=== PATIENT | male | born 1995 | race Caucasian/White ===

== ENCOUNTER 2017-12-08 06:24 | Observation (INO) | payer BC ==
[~2017-12-08] VITALS: Ht 188 cm; Wt 84.2 kg
[2017-12-08 06:32] VITALS: BP 118/71
[2017-12-08] MEDS ORDERED: SODIUM CHLORIDE FLUSH 10ML SYR IVF ONE (07:00)
[2017-12-08] MEDS ORDERED: ONDANSETRON 2MG/ML, 2ML IVPush ONE ×2 (07:00→08:00)
[2017-12-08] MEDS ORDERED: ONDANSETRON 2MG/ML, 2ML ONE ×3 (07:02→11:09)
[2017-12-08] MEDS ORDERED: MORPHINE SULFATE 4 MG/ML, 1ML ONE ×2 (07:03→07:36)
[2017-12-08 07:07] LABS: BASOPHILS # (AUTO) 0.03 x10^3/uL (0-0.1); BASOPHILS % (AUTO) 0 % (0-1); EOSINOPHILS # (AUTO) 0.08 x10^3/uL (0-0.4); EOSINOPHILS % (AUTO) 1 % (1-7); LYMPHOCYTES # (AUTO) 1.72 x10^3/uL (1-3.4); LYMPHOCYTES % (AUTO) 12 % (22-44); MD NO; MEAN CORPUSCULAR HGB CONC 33.9 g/dL (33.2-36.2); MEAN CORPUSCULAR VOLUME 91.4 fL (81-97); MEAN PLATELET VOLUME 9.2 fL (7.4-10.4); MONOCYTES # (AUTO) 0.56 x10^3/uL (0.2-0.8); MONOCYTES % (AUTO) 4 % (2-9); NEUTROPHILS # (AUTO) 12.35 x10^3/uL (1.8-6.8); NEUTROPHILS % (AUTO) 84 % (42-75); PLATELET COUNT 171 x10^3/uL (130-400); RED BLOOD COUNT 5.24 x10^6/uL (4.38-5.82); RED CELL DISTRIBUTION WIDTH 12.3 % (9.4-14.8)
[2017-12-08] MEDS ORDERED: OMEG100023 PO (07:08)
[2017-12-08] MEDS ORDERED: FLUO20CA19 PO (07:08)
[2017-12-08] MEDS: MORPHINE SULFATE 4 MG/ML, 1ML IVPush PRN ×2 (07:10→07:45)
[2017-12-08 07:20] LABS: ALANINE AMINOTRANSFERASE 39 U/L (12-78); ALBUMIN 4.2 g/dL (3.4-5.0); ANION GAP 10 mmol/L (5-15); CALCIUM 8.8 mg/dL (8.5-10.1); CHLORIDE 106 mmol/L (98-107); CREATININE 1.18 mg/dL (0.7-1.3)
[2017-12-08] MEDS ORDERED: SODIUM CHLORIDE 0.9% 1,000 ML IV ONE (07:20)
[2017-12-08 07:21] LABS: ALKALINE PHOSPHATASE 52 U/L (45-117); BILIRUBIN,TOTAL 0.9 mg/dL (0.2-1.0); TOTAL PROTEIN 7.5 g/dL (6.4-8.2)
[2017-12-08 07:36] LABS: MICROSCOPIC NOT IND
[2017-12-08 07:53] LABS: CULTURE INDICATED? NO
[2017-12-08] MEDS ORDERED: CEFOTETAN PMX 1GM/50ML 50 ML ONE (07:56)
[2017-12-08] MEDS ORDERED: CEFOTETAN PMX 1GM/50ML 50 ML IV ONE (08:00)
[2017-12-08] MEDS ORDERED: METOCLOPRAMIDE 5 MG/ML, 2ML ONE (09:54)
[2017-12-08] MEDS ORDERED: METOCLOPRAMIDE 5 MG/ML, 2ML IVPush ONE (10:00)
[2017-12-08] MEDS ORDERED: BUPIVACAINE/PF-EPI 0.25% 1:200K ONE (10:59)
[2017-12-08] MEDS ORDERED: BUPIVACAINE/PF-EPI 0.5% 1:200K ONE (10:59)
[2017-12-08] MEDS ORDERED: SUCCINYLCHOLINE 20 MG/ML, 10ML ONE (11:09)
[2017-12-08] MEDS ORDERED: DEXAMETHASONE 4 MG/ML, 5ML ONE (11:09)
[2017-12-08] MEDS ORDERED: KETOROLAC 30 MG/1 ML ONE (11:09)
[2017-12-08] MEDS ORDERED: PROPOFOL 10 MG/ML, 20ML ONE (11:09)
[2017-12-08] MEDS ORDERED: FENTANYL PF 250 MCG/5ML ONE (11:10)
[2017-12-08] MEDS ORDERED: OXYcodone 5 MG/5 ML ORAL.SOL UDC PO PRN (11:30)
[2017-12-08] MEDS ORDERED: ACETAMINOPHEN 325 MG TABLET PO PRN (11:30)
[2017-12-08] MEDS ORDERED: MEPERIDINE/PF 25MG/0.5ML IVPush PRN (11:30)
[2017-12-08] MEDS ORDERED: HYDROmorphone 1 MG/ML, 1ML IV PRN (11:30)
[2017-12-08] MEDS ORDERED: HALOPERIDOL 5 MG/ML IV PRN (11:30)
[2017-12-08] MEDS ORDERED: FENTANYL PF 100 MCG/2ML IV PRN (11:30)
[2017-12-08] MEDS ORDERED: ACETAMINOPHEN 650 MG/20.3 ML UDC ONE (12:15)
[2017-12-08] MEDS ORDERED: OXYcodone 5 MG/5 ML ORAL.SOL UDC ONE (12:16)
== END 2017-12-08 09:01 | disposition home or self-care (01) ==
LOC: OR 07:51 → EDIP 07:52 → OR 08:12
PROVIDERS: ADMIT Surgery; ATTEND Surgery
DX: K35.80 Unspecified acute appendicitis (principal); Z87.11 Personal history of peptic ulcer disease
CPT/HCPCS: 36415; 44970; 80053; 81003; 85025; 88304; 96365; 96375; 96376; 99285; G0378; J0330; J1100; J1885; J2405; J2704; J2765; J3010; J7030; S0074